=== PATIENT | male | born 1970 | race Hispanic/Latino ===

== ENCOUNTER 2018-08-16 13:25 | Outpatient (CLI) | payer MEDICARE ==
[2018-08-16] MEDS ORDERED: XYLOCAINE TOPICAL 4% TP ONE ×2 (13:36→13:38)
== END 2018-08-16 13:26 | disposition home or self-care (01) ==
LOC: WOUND 13:25
PROVIDERS: ATTEND Surgery
DX: T81.89XA Other complications of procedures, not elsewhere classified, initial encounter (principal); J45.909 Unspecified asthma, uncomplicated; F17.200 Nicotine dependence, unspecified, uncomplicated; Y83.8 Other surgical procedures as the cause of abnormal reaction of the patient, or of later complication, without mention of misadventure at the time of the procedure; Y92.89 Other specified places as the place of occurrence of the external cause
CPT/HCPCS: 99215; G0463